=== PATIENT | female | born 1950 | race Caucasian/White ===

== ENCOUNTER 2018-07-09 16:58 | Outpatient (CLI) | payer MEDICARE, BC, SELFPAY ==
--- NOTE | 2018-07-09 15:33 | DI.RAD_ITS ---
SYMPTOM/DIAGNOSIS: LT KNEE PAIN, M25.562 LEFT KNEE: Three views. There are post surgical changes of a prior anterior cruciate ligament repair. Mild periarticular spurring is seen involving all three joint compartments. The bones are intact and normally mineralized. The soft tissues are unremarkable. IMPRESSION: 1. Mild osteoarthritis of the left knee. 2. Status post ACL repair.
== END 2018-07-09 17:18 ==
PROVIDERS: PCP Family Medicine; Visit Provider Specialist/Technologist Athletic Trainer
DX: M25.562 Pain in left knee (principal); M17.12 Unilateral primary osteoarthritis, left knee; Z98.890 Other specified postprocedural states
CPT/HCPCS: 73562

== ENCOUNTER → 2018-09-06 11:08 | Outpatient (BNVA) | payer MEDICARE, BC, SELFPAY | PROVIDERS: PCP Family Medicine; Referring Provider Family Medicine; Visit Provider Orthopaedic Surgery | DX: M25.562 Pain in left knee (principal) | CPT/HCPCS: 99211; 99213 ==

== ENCOUNTER 2018-09-10 00:56 | Outpatient (CLI) | payer MEDICARE, BC, SELFPAY ==
--- NOTE | 2018-09-10 15:34 | DI.MRI_ITS ---
SYMPTOM/DIAGNOSIS: MEDIAL JOINT LINE PAIN/ACL HOLLY 20 YRS AGO. RB MENISCUS TEAR MRI LEFT KNEE: 09/10 MR examination of the knee was performed according to the usual protocol. Note is made of fixation screws in the femur and tibia consistent with previous ACL reconstruction. There is significant artifact associated with these metallic devices. The ACL reconstruction appears intact. Posterior cruciate appears intact. There appear to be significant degenerative articular cartilage changes of medial and lateral tibiofemoral joints. There are probable medial and lateral meniscal tears. There is a May's cyst measuring up to about 6 cm in greatest diameter. CONCLUSION: Limited study. Grossly intact reconstructed ACL with probable lateral and medial meniscal tear.
== END 2018-09-10 01:16 ==
PROVIDERS: PCP Family Medicine; Visit Provider Orthopaedic Surgery
DX: M25.562 Pain in left knee (principal); M71.22 Synovial cyst of popliteal space [Baker], left knee; S83.282A Other tear of lateral meniscus, current injury, left knee, initial encounter; S83.242A Other tear of medial meniscus, current injury, left knee, initial encounter
CPT/HCPCS: 73721

== ENCOUNTER → 2018-09-25 08:34 | Outpatient (BNVA) | payer MEDICARE, BC, SELFPAY | PROVIDERS: PCP Family Medicine; Referring Provider Family Medicine; Visit Provider Orthopaedic Surgery | DX: S83.207A Unspecified tear of unspecified meniscus, current injury, left knee, initial encounter (principal); X50.1XXA Overexertion from prolonged static or awkward postures, initial encounter; M71.22 Synovial cyst of popliteal space [Baker], left knee | CPT/HCPCS: 99211; 99213 ==

== ENCOUNTER → 2018-11-19 09:52 | Outpatient (BNVA) | payer MEDICARE, BC, SELFPAY | PROVIDERS: PCP Family Medicine; Referring Provider Family Medicine; Visit Provider Physical Therapy Assistant | DX: Z01.818 Encounter for other preprocedural examination (principal); M25.562 Pain in left knee ==

== ENCOUNTER 2018-11-21 09:57 | Outpatient (CLI) | payer MEDICARE, BC, SELFPAY | END 2018-11-21 10:17 | PROVIDERS: PCP Family Medicine; Visit Provider Orthopaedic Surgery | DX: M25.562 Pain in left knee (principal); S83.207A Unspecified tear of unspecified meniscus, current injury, left knee, initial encounter; Z01.818 Encounter for other preprocedural examination ==

== ENCOUNTER 2018-11-28 06:09 | Day surgery (SDC) | payer MEDICARE, BC, SELFPAY ==
[2018-11-28] VITALS (7 sets, daily range): BP systolic 135–148; BP diastolic 70–85; PULSE 61–84; RESP 12–18; TEMP 36.4–36.8; O2SAT 96–100
[2018-11-28] MEDS: Lactated Ringers 1,000 ML 80 ML IV (06:45)
[2018-11-28] MEDS: Bupivacaine 0.5% Pres-Free 30 ML VIAL (08:30)
--- NOTE | 2018-11-28 09:08 | W.PM.DSUDISC ---
Discharge Plan Disposition Patient Disposition: HOME Condition: Improving Discharge Details Attending Provider: Kvng Hinkle Primary Care Provider: Alexsandra Ulloa V Home Meds and New Rx's Prescriptions: New hydrocodone-acetaminophen 5-325 mg Tablet 1 - 2 tab PO 4-6XD PRN (Reason: Pain) Qty: 18 RF: 0 No Action levothyroxine 25 mcg capsule 25 mcg PO DAILY RF: 0 ranitidine HCl 150 mg capsule 150 mg PO DAILY PRNRF: 0 Discharge Instructions Additional Instructions: KEEP YOUR LEFT LEG ELEVATED ABOVE HEART LEVEL MUCH POSSIBLE FOR THE NEXT 48-72 HOURS. YOU MAY WALK ON YOUR KNEE TO EAT OR TO GO TO THE BATHROOM, BUT FOR THE NEXT 48 HOURS TRY TO MAXIMIZE ELEVATION. USE YOUR CRYOCUFF TO HELP MINIMIZE PAIN AND SWELLING. YOU MAY PLACE YOUR FULL WEIGHT UPON YOUR KNEE TO EAT OR TO TO GO THE BATHROOM BUT TRY TO LIMIT ACTIVITY FOR THE NEXT 2-3 DAYS. YOU MAY LOOSEN YOUR CLARISSA BANDAGES AND/OR THE CRYOCUFF IF THEY FEEL TOO TIGHT. EXPECT A SMALL AMOUNT OF BLOODY DRAINAGE ON THE UNDERLYING GAUZE BANDAGES. ON 11/30/18, YOU MAY REMOVE ALL OF YOUR BANDAGES AND GET YOUR STITCHES WET IN THE SHOWER WITH SOAP AND WATER. GENTLY PAT THE STITCHES DRY AND COVER THEM WITH BANDAIDS OR GAUZE. RE-APPLY A SINGLE 6 INCH CLARISSA WRAP AND GRADUALLY BEGIN USING YOUR KNEE,. CONTINUE TO USE THE CRYOCUFF FOR PAIN AND SWELLING. MAKE SURE YOU REMOVE THE SINGLE 6 INCH CLARISSA BANDAGE EACH NIGHT SO THAT IT DOESN'T CAUSE SWELLING IN THE LOWER LEG OR ANKLE. TAKE TYLENOL FOR MILDER PAIN. IF YOUR STOMACH CAN HANDLE ALEVE, TAKE IT WITH THE TYLENOL FOR MORE SERIOUS DISCOMFORT. TYLENOL AND ALEVE ARE METABOLIZED DIFFERENTLY AND ARE NOT CROSS TOXIC. TAKE NORCO (HYDROCODONE 5/325MG) 1-2 EVERY 4-6 HOURS FOR MORE SERIOUS PAIN. NEW STATE [facility] REGULATIONS LIMIT THE AMOUNT OF NORCO THAT CAN BE PRESCRIBED TO [address] TABLETS. FOLLOW-UP WITH DR. HINKLE IN 10-12 DAYS FOR SUTURE REMOVAL AND REVIEW OF ARTHROSCOPIC PHOTOS. Activity:: Elevate Remove Dressings/Wound Care:: 48 hours Shower/Bathe:: 48 hours Diet:: As Tolerated Discharge Orders Discharge Orders: Discharge Order (Routine); Ordered 11/28/18 Ordered By: Kvng Hinkle
[2018-11-28] MEDS: HYDROcodone 5/Acetaminophen 325 TAB PO (10:43)
--- NOTE | 2018-11-28 16:16 | ROE_ITS ---
DATE OF PROCEDURE: November 28, 2018 PREOPERATIVE DIAGNOSIS: Left knee pain with swelling and tear of medial and lateral menisci. POSTOPERATIVE DIAGNOSIS: Left knee pain with swelling and tear of medial and lateral menisci, with a more prominent medial men iscal tear compared to lateral meniscal tear. PROCEDURE: Arthroscopy left knee; partial medial and lateral meniscectomies; limited chondroplasty o f medial femoral condyle and patella. SURGEON: Kvng Prado M.D. BRASS ROLLER: Nurse. ANESTHESIA: General via LMA by Steve Barber, TASH PREP: ChloraPrep. INDICATIONS: This patient presented to my office with chronic pain and swelling in her right knee. This was aggravated by activity. She is greater than 20 years status post ACL reconstruction. Plain radiographs showed minimal degenerative changes of the knee. An MRI showed evidence of medial and l ateral meniscal damage. There was some artifact from the bony fixation for the ACL but no evidence o f a disruption of the ACL graft. There were some mild degenerative changes noted on the medial and l ateral femoral condyles. I recommended an arthroscopy to improve the patient's quality of life, unde rstanding that there could be areas of osteoarthritis in her knee that would be missed by both the MR I and the plain radiographs. I met her the Day Surgery holding area and discussed this with the layne ent and her . I then marked her left knee. OPERATIVE PROCEDURE: She was taken to the Operating Suite and underwent successful induction without problems using LMA. A time-out was instituted verifying the planned procedure, the patient's allerg y to adhesive tape and an intolerance to NSAIDs. A pneumatic tourniquet was applied to the left proximal thigh but was no utilized during the case. T he thigh itself was placed in an research instrumentation technician holding device. After prepping the entire left low er extremity from toes to the groin and applying sterile drapes, the arthroscope was placed through a n anterolateral portal. Inflow was provided through the scope. Egress and pressure monitoring bang ls were placed superolaterally. Inspection of the medial compartment showed both vertical and horizo ntal cleavage tears in the posteromedial aspect. Associated with this was some articular cartilage d amaged in the mesial aspect of the medial femoral condyle. This was not down to subchondral bone and was in a relatively small area about the size of a nickel. The ACL graft was intact and functioning well. The lateral compartment showed some fraying of the inner surface of the lateral meniscus and a horizontal tear anterolaterally, but the majority of the lateral meniscus looked to be intact. Bot h the medial and lateral menisci were carefully probed to confirm the pathology. 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 This was subsequently treated with a limited chondroplasty using a 90-degree ArthroCare wand. Beginning with the medial compartment, a partial medial meniscectomy was performed using basket force ps followed by the ArthroCare wand at a 90-degree angle. A stable medial meniscus was then left behi nd. The lateral meniscus was also treated with the ArthroCare wand and the anterolateral tear was ca refully resected to good meniscal tissue. A limited chondroplasty was then performed with the 50- an d 90-degree ArthroCare wands of the femoral condyle and the patella. The knee was then irrigated with several thousand cc's of saline. Portals were removed and closed wi th sutures of #4-0 Ethilon in horizontal mattress fashion. The knee was injected with Marcaine 0.5% plain to provide for postoperative analgesia. The wounds were dressed with Xeroform gauze, 4x4s, and an ABD pad, followed by two 6-inch Maxim wraps and a Cryo/Cuff. The patient was taken to the outpatie nt Recovery Room in satisfactory condition, tolerating the procedure well.
--- NOTE | 2018-11-29 08:48 | PDOC.DSDIS_ITS ---
Discharge Plan Disposition Patient Disposition: HOME Condition: Improving Discharge Details Attending Provider: Kvng Hinkle Primary Care Provider: Alexsandra Ulloa V Home Meds and New Rx's Prescriptions: New hydrocodone-acetaminophen 5-325 mg Tablet 1 - 2 tab PO 4-6XD PRN (Reason: Pain) Qty: 18 RF: 0 No Action levothyroxine 25 mcg capsule 25 mcg PO DAILY RF: 0 ranitidine HCl 150 mg capsule 150 mg PO DAILY PRNRF: 0 Discharge Instructions Additional Instructions: KEEP YOUR LEFT LEG ELEVATED ABOVE HEART LEVEL MUCH POSSIBLE FOR THE NEXT 48-72 HOURS. YOU MAY WALK ON YOUR KNEE TO EAT OR TO GO TO THE BATHROOM, BUT FOR THE NEXT 48 HOURS TRY TO MAXIMIZE ELEVATION. USE YOUR CRYOCUFF TO HELP MINIMIZE PAIN AND SWELLING. YOU MAY PLACE YOUR FULL WEIGHT UPON YOUR KNEE TO EAT OR TO TO GO THE BATHROOM BUT TRY TO LIMIT ACTIVITY FOR THE NEXT 2-3 DAYS. YOU MAY LOOSEN YOUR CLARISSA BANDAGES AND/OR THE CRYOCUFF IF THEY FEEL TOO TIGHT. EXPECT A SMALL AMOUNT OF BLOODY DRAINAGE ON THE UNDERLYING GAUZE BANDAGES. ON 11/30/18, YOU MAY REMOVE ALL OF YOUR BANDAGES AND GET YOUR STITCHES WET IN THE SHOWER WITH SOAP AND WATER. GENTLY PAT THE STITCHES DRY AND COVER THEM WITH BANDAIDS OR GAUZE. RE-APPLY A SINGLE 6 INCH CLARISSA WRAP AND GRADUALLY BEGIN USING YOUR KNEE,. CONTINUE TO USE THE CRYOCUFF FOR PAIN AND SWELLING. MAKE SURE YOU REMOVE THE SINGLE 6 INCH CLARISSA BANDAGE EACH NIGHT SO THAT IT DOESN'T CAUSE SWELLING IN THE LOWER LEG OR ANKLE. TAKE TYLENOL FOR MILDER PAIN. IF YOUR STOMACH CAN HANDLE ALEVE, TAKE IT WITH THE TYLENOL FOR MORE SERIOUS DISCOMFORT. TYLENOL AND ALEVE ARE METABOLIZED DIFFERENTLY AND ARE NOT CROSS TOXIC. TAKE NORCO (HYDROCODONE 5/325MG) 1-2 EVERY 4-6 HOURS FOR MORE SERIOUS PAIN. [facility] REGULATIONS LIMIT THE AMOUNT OF NORCO THAT CAN BE PRESCRIBED TO 18 TABLETS. FOLLOW-UP WITH DR. HINKLE IN 10-12 DAYS FOR SUTURE REMOVAL AND REVIEW OF ARTHROSCOPIC PHOTOS. Stand Alone Forms: DSU Post op Instructions, Scopolamine Skin Patch, Sabino Cornell (DSU) Activity:: Elevate Remove Dressings/Wound Care:: 48 hours Shower/Bathe:: 48 hours Diet:: As Tolerated Discharge Orders Discharge Orders: Discharge Order (Routine); Ordered 11/28/18 Ordered By: Kvng Hinkle Discharge Data Discharge Date/Time-TO BE ENTERED AT DEPARTURE: 11/28/18 11:53
== END 2018-11-28 11:53 | disposition home or self-care (01) ==
PROVIDERS: PCP Family Medicine; Visit Provider Orthopaedic Surgery
PROC: (CPT 29870; principal; 2018-11-28 07:30)
DX: M25.562 Pain in left knee (principal); M25.462 Effusion, left knee; M23.232 Derangement of other medial meniscus due to old tear or injury, left knee; M23.262 Derangement of other lateral meniscus due to old tear or injury, left knee
CPT/HCPCS: 29880; E0114; J1100; J1200; J1885; J2250; J2405; J3010

== ENCOUNTER → 2018-12-11 08:29 | Outpatient (BNVA) | payer MEDICARE, BC, SELFPAY | PROVIDERS: PCP Family Medicine; Referring Provider Family Medicine; Visit Provider Orthopaedic Surgery | DX: Z47.89 Encounter for other orthopedic aftercare (principal); M23.232 Derangement of other medial meniscus due to old tear or injury, left knee; M23.262 Derangement of other lateral meniscus due to old tear or injury, left knee ==

== ENCOUNTER → 2018-12-31 09:31 | Outpatient (BNVA) | payer MEDICARE, BC, SELFPAY | PROVIDERS: PCP Family Medicine; Referring Provider Family Medicine; Visit Provider Orthopaedic Surgery | DX: M17.12 Unilateral primary osteoarthritis, left knee (principal) | CPT/HCPCS: 20610; 99211; 99212; J7325 ==

== ENCOUNTER → 2019-02-14 09:09 | Outpatient (BNVA) | payer MEDICARE, BC, SELFPAY | PROVIDERS: PCP Family Medicine; Referring Provider Family Medicine; Visit Provider Orthopaedic Surgery | DX: M17.12 Unilateral primary osteoarthritis, left knee (principal); Z47.89 Encounter for other orthopedic aftercare ==

== ENCOUNTER 2019-04-04 15:30 | Outpatient (REF) | payer MEDICARE, BC, SELFPAY ==
[2019-04-04 21:50] LABS: Glucose 100 mg/dL (70-100); TSH (W/Ref FT4) 0.01 uIU/mL (0.358-3.74)
[2019-04-04 22:33] LABS: FREE T4 1.19 ng/dL (0.76-1.46)
== END 2019-04-04 15:50 ==
LOC: NCHCN 15:30
PROVIDERS: PCP Family Medicine; Visit Provider Family Medicine
DX: E03.9 Hypothyroidism, unspecified; R79.89 Other specified abnormal findings of blood chemistry
CPT/HCPCS: 82947; 84439; 84443

== ENCOUNTER → 2019-07-25 08:29 | Outpatient (BNVA) | payer MEDICARE, BC, SELFPAY | PROVIDERS: PCP Family Medicine; Referring Provider Family Medicine; Visit Provider Student in an Organized Health Care Education/Training Program | DX: M17.12 Unilateral primary osteoarthritis, left knee (principal) | CPT/HCPCS: 20610; 99214; J7325 ==

== ENCOUNTER 2019-10-09 11:19 | Outpatient (REF) | payer MEDICARE, BC, SELFPAY | END 2019-10-09 11:39 | LOC: NCHCN 11:19 | PROVIDERS: PCP Family Medicine; Visit Provider Nurse Practitioner Family | DX: N39.0 Urinary tract infection, site not specified (principal) | CPT/HCPCS: 87086 ==

== ENCOUNTER 2019-10-15 09:15 | Outpatient (CLI) | payer MEDICARE, BC, SELFPAY ==
[2019-10-15 09:34] LABS: Bilirubin Negative (Negative); Blood Negative (Negative); Clarity Clear (Clear); Glucose Negative (Negative); Ketones Negative (Negative); Leukocyte Esterase Negative (Negative); Nitrite Negative (Negative); Urobilinogen 0.2 EU/dL (Up TO 0.2)
== END 2019-10-15 09:35 ==
PROVIDERS: PCP Family Medicine; Visit Provider Family Medicine
DX: N39.0 Urinary tract infection, site not specified (principal)
CPT/HCPCS: 81003

== ENCOUNTER 2020-06-24 12:27 | Outpatient (REF) | payer MEDICARE, BC, SELFPAY ==
[2020-06-24 23:16] LABS: TSH < 0.01 uIU/mL (0.36-3.74)
== END 2020-06-24 12:47 ==
LOC: NCHCN 12:27
PROVIDERS: PCP Family Medicine; Visit Provider Family Medicine
DX: E03.9 Hypothyroidism, unspecified (principal)
CPT/HCPCS: 84439; 84443

== ENCOUNTER 2021-04-30 08:54 | Outpatient (REF) | payer MEDICARE, BC, SELFPAY ==
[2021-04-30 20:40] LABS: TSH (W/Ref FT4) < 0.01 uIU/mL (0.36-3.74)
[2021-04-30 20:58] LABS: FREE T4 1.27 ng/dL (0.76-1.46)
== END 2021-04-30 08:55 | disposition home or self-care (01) ==
LOC: NCHCN 08:54
PROVIDERS: PCP Family Medicine; Visit Provider Family Medicine
DX: Z00.00 Encounter for general adult medical examination without abnormal findings (principal)
CPT/HCPCS: 83036; 84439; 84443

== ENCOUNTER 2021-08-18 15:06 | Outpatient (REF) | payer MEDICARE, BC, SELFPAY | END 2021-08-18 15:07 | disposition home or self-care (01) | LOC: NCHCN 15:06 | PROVIDERS: PCP Family Medicine; Visit Provider Nurse Practitioner Family | DX: R30.0 Dysuria (principal) | CPT/HCPCS: 87086 ==

== ENCOUNTER 2021-12-24 13:46 | Outpatient (REF) | payer MEDICARE, BC, SELFPAY ==
[2021-12-24 20:37] LABS: Calculated LDL 108 mg/dL (<100); Cholesterol 184 mg/dL (<200); HDL Cholesterol 61 mg/dL (40-60); Triglyceride 79 mg/dL (<150)
[2021-12-24 20:58] LABS: FREE T4 1.29 ng/dL (0.76-1.46)
== END 2021-12-24 13:47 | disposition home or self-care (01) ==
LOC: NCHCN 13:46
PROVIDERS: PCP Family Medicine; Visit Provider Family Medicine
DX: R07.9 Chest pain, unspecified (principal); E03.9 Hypothyroidism, unspecified
CPT/HCPCS: 80061; 84439

== ENCOUNTER 2022-01-19 09:00 | Outpatient (RCR) | payer MEDICARE, BC, SELFPAY | END 2022-01-20 23:59 | disposition home or self-care (01) | LOC: CR 09:00 | PROVIDERS: PCP Family Medicine; Visit Provider Family Medicine | DX: Z51.89 Encounter for other specified aftercare (principal); I25.2 Old myocardial infarction; Z95.5 Presence of coronary angioplasty implant and graft | CPT/HCPCS: S9472 ==

== ENCOUNTER → 2022-02-10 01:35 | Outpatient (CLI) | payer MEDICARE, BC, SELFPAY ==
--- NOTE | 2022-02-10 | DI.US_ITS ---
Exam(s) US THYROID EXAM: US THYROID CLINICAL HISTORY: THYROID NODULE E04.1. TECHNIQUE: Ultrasound thyroid performed using standard protocol. COMPARISON: US THYROID ULTRASOUND from 01/19/2011 US ABDOMEN ULTRASOUND (P) from 11/15/2012 FINDINGS: There are total 3 mixed solid-cystic nodules, 2 in the left lobe 1 in right lobe. RIGHT THYROID LOBE: Measures 3 cm AP x 0.5 cm wide x 5.6 cm craniocaudal. The nodule in right thyroid lobe is the dominant nodule and occupies a large part mid-inferior aspect right lobe, this nodule measuring 3.3 x 0.1x 2.9 cm Composition: Mixed solid cystic-1 point Echogenicity: Relatively hypoechoic-2 points Shape: Wider than taller-0 points Margin: Lobulated-2 points Echogenic Foci: Contains macro calcifications 1 point Total Points for this nodule: 6 ACR Ti-Rads Category: TR4 Therefore this nodule should undergo ultrasound examination as it measures greater than 1.5 cm. ISTHMUS: Normal thickness. There are no nodules in the isthmus. LEFT THYROID LOBE: Measures 2 cm AP x 1.5 wide x 4.8 cm craniocaudal There are 2 nodules in left lobe. Nodule #1 located approximately midpole level Size: Measures 1.9 x 1.0 x 1.4 cm Composition: Mixed grjoy-woudui-2 points Echogenicity: Mildly hypoechoic-1 points Shape: Wider than taller in the transverse plane-0 points Margin: Lobulated-2 points Echogenic Foci: None-0 points Total points for this nodule: 4 ACR Ti-Rads Category: 4. This nodule does not require biopsy. Nodule #2 located towards the lower pole Size: Measures 1.5 by 1.4 x 1.2 cm Composition: Mixed solid cystic-1 point Echogenicity: Mildly hyperechoic-1 point Shape: Taller than wider-3 points Margin: Smooth-0 points Echogenic Foci: None-0 point Total Points for this nodule: 5 ACR Ti-Rads Category: 4. This nodule does not require biopsy LYMPH NODES: There is no significant adenopathy. IMPRESSION: 1. Total of 3 nodules as described individually above, 1 in the right lobe and 2 in the left lobe. 2. The dominant nodule in the right lobe requires ultrasound-guided FNA given that it is TiRads 4 and greater than 1.5 cm size. 3. There is no significant lymphadenopathy. DATA REPOSITORY:
== END ==
PROVIDERS: PCP Family Medicine; Visit Provider Physician Assistant Medical
DX: E04.2 Nontoxic multinodular goiter (principal)
CPT/HCPCS: 76536

== ENCOUNTER 2022-02-11 09:11 | Outpatient (REF) | payer MEDICARE, BC, SELFPAY ==
[2022-02-11 15:28] LABS: FREE T4 1.27 ng/dL (0.76-1.46); TSH < 0.01 uIU/mL (0.36-3.74)
[2022-02-11 21:41] LABS: T3, Total 160 ng/dL (97-169)
== END 2022-02-11 09:12 | disposition home or self-care (01) ==
LOC: NCHCN 09:11
PROVIDERS: PCP Family Medicine; Visit Provider Physician Assistant Medical
DX: E04.1 Nontoxic single thyroid nodule (principal)
CPT/HCPCS: 84439; 84443; 84480

== ENCOUNTER 2022-02-18 09:00 | Outpatient (RCR) | payer MEDICARE, BC, SELFPAY | END 2022-02-19 23:59 | disposition home or self-care (01) | LOC: CR 09:00 | PROVIDERS: PCP Family Medicine; Visit Provider Internal Medicine Cardiovascular Disease | DX: Z51.89 Encounter for other specified aftercare (principal); I25.2 Old myocardial infarction | CPT/HCPCS: S9472 ==

== ENCOUNTER 2022-03-07 09:00 | Outpatient (RCR) | payer MEDICARE, BC, SELFPAY | END 2022-03-22 23:59 | disposition home or self-care (01) | LOC: CR 09:00 | PROVIDERS: PCP Family Medicine; Visit Provider Internal Medicine Cardiovascular Disease | DX: Z51.89 Encounter for other specified aftercare (principal); I25.2 Old myocardial infarction; Z95.5 Presence of coronary angioplasty implant and graft | CPT/HCPCS: S9472 ==

== ENCOUNTER 2022-04-20 08:00 | Outpatient (RCR) | payer MEDICARE, BC, SELFPAY | END 2022-04-21 23:59 | disposition home or self-care (01) | LOC: CR 08:00 | PROVIDERS: PCP Family Medicine; Visit Provider Internal Medicine Cardiovascular Disease | DX: Z51.89 Encounter for other specified aftercare (principal); I25.2 Old myocardial infarction; Z95.5 Presence of coronary angioplasty implant and graft | CPT/HCPCS: S9472 ==

== ENCOUNTER 2022-05-03 16:30 | Outpatient (REF) | payer MEDICARE, BC, SELFPAY ==
[2022-05-03 16:24] LABS: ALT 58 U/L (14-59); AST 38 U/L (15-37); Alkaline Phosphatase 64 U/L (46-116); Anion Gap 4.9 mmol/L (3-11); BUN 17 mg/dL (7-18); Bilirubin, Total 0.8 mg/dL (0.2-1.0); CO2 31.1 mmol/L (21.0-32.0); CREATININE 0.8 mg/dL (0.55-1.02); Calcium 9.2 mg/dL (8.5-10.1); Chloride 105 mmol/L (98-107); Glucose 116 mg/dL (74-106); Potassium 3.9 mmol/L (3.5-5.1); Sodium 141 mmol/L (136-145); TSH (W/Ref FT4) 0.01 uIU/mL (0.36-3.74); Total Protein 6.9 g/dL (6.4-8.2); Uric Acid 4.4 mg/dL (2.6-6.0)
[2022-05-03 16:42] LABS: Calculated LDL 58 mg/dL (<100); Cholesterol 123 mg/dL (<200); HDL Cholesterol 60 mg/dL (40-60); Triglyceride 28 mg/dL (<150)
[2022-05-03 16:43] LABS: Hemoglobin A1C 5.9 % (<5.7)
[2022-05-03 16:59] LABS: FREE T4 1.13 ng/dL (0.76-1.46)
[2022-05-06 12:06] LABS: Creatine Kinase 111 U/L (26-192)
== END 2022-05-03 16:31 | disposition home or self-care (01) ==
LOC: NCHCN 16:30
PROVIDERS: PCP Family Medicine; Visit Provider Family Medicine
DX: R73.03 Prediabetes (principal); M10.9 Gout, unspecified; E03.9 Hypothyroidism, unspecified; I25.2 Old myocardial infarction
CPT/HCPCS: 80053; 80061; 82550; 83036; 84439; 84443; 84550

== ENCOUNTER 2022-05-06 09:00 | Outpatient (RCR) | payer MEDICARE, BC, SELFPAY | END 2022-05-22 23:59 | disposition home or self-care (01) | LOC: CR 09:00 | PROVIDERS: PCP Family Medicine; Visit Provider Internal Medicine Cardiovascular Disease | DX: I25.2 Old myocardial infarction (principal); Z95.5 Presence of coronary angioplasty implant and graft; Z51.89 Encounter for other specified aftercare | CPT/HCPCS: S9472 ==

== ENCOUNTER 2024-09-12 21:16 | Outpatient (REF) | payer MEDICARE, BC, SELFPAY ==
[2024-09-12 21:27] LABS: Anion Gap 7.5 mmol/L (3-11); BUN 18 mg/dL (7-18); CO2 30.5 mmol/L (21.0-32.0); CREATININE 0.9 mg/dL (0.55-1.02); Calcium 9.5 mg/dL (8.5-10.1); Chloride 108 mmol/L (98-107); Estimated GFR 67.92 (mL/min/1.73m2); Glucose 117 mg/dL (74-106); Potassium 4.4 mmol/L (3.5-5.1); Sodium 146 mmol/L (136-145)
[2024-09-12 21:32] LABS: Hemoglobin A1C 6.1 % (<5.7)
== END 2024-09-12 21:17 | disposition home or self-care (01) ==
LOC: NCHCN 21:16
PROVIDERS: PCP Family Medicine; Visit Provider Family Medicine
DX: R73.03 Prediabetes (principal)
CPT/HCPCS: 80048; 83036

== ENCOUNTER 2024-12-23 15:42 | Outpatient (CLI) | payer MEDICARE, BC, SELFPAY ==
--- NOTE | 2024-12-23 14:00 | DI.RAD_ITS ---
Exam(s) XR KNEE LT 4V AP,LAT,MARLYS,PAT EXAM: XR KNEE LT 4V AP,LAT,MARLYS,PAT CLINICAL HISTORY: L knee pain. TECHNIQUE: 2D digital imaging was performed. Three views. COMPARISON: CR XR knee LT 3V AP,lat,marlys from 07/09/2018 FINDINGS: BONES: No acute fracture is present. No bony destructive lesion is seen. Hardware in distal femur and proximal tibia related to ACL repair. Patellar enthesophytes. JOINTS: The knee is normally aligned. The joint spaces are maintained. Periarticular spurring throu ghout. No joint effusion is seen. SOFT TISSUE: Normal. IMPRESSION: Stable postsurgical and degenerative changes. DATA REPOSITORY: RADIATION DOSE DELIVERED:
== END 2024-12-23 15:43 | disposition home or self-care (01) ==
LOC: DIORS 15:42
PROVIDERS: PCP Family Medicine; Referring Provider Family Medicine; Visit Provider Student in an Organized Health Care Education/Training Program
DX: M17.32 Unilateral post-traumatic osteoarthritis, left knee; L72.0 Epidermal cyst
CPT/HCPCS: 20610; 99203; 73564; J7325

== ENCOUNTER 2025-04-28 15:24 | Outpatient (CLI) | payer MEDICARE, BC, SELFPAY ==
--- NOTE | 2025-04-28 13:45 | DI.RAD_ITS ---
Exam(s) XR KNEE RT 4V AP,LAT,MARLYS,PAT EXAM: XR KNEE RT 4V AP,LAT,MARLYS,PAT CLINICAL HISTORY: right knee pain. TECHNIQUE: 2D digital imaging was performed. Three views. COMPARISON: CR XR KNEE LT 4V AP,LAT,MARLYS,PAT from 12/23/2024 FINDINGS: BONES: No acute fracture is present. No bony destructive lesion is seen. Small enthesophyte at quadriceps insertion on patella. JOINTS: The joint spaces are maintained. Minimal periarticular spurring. The knee is normally aligned. No joint effusion is seen. SOFT TISSUE: Normal. IMPRESSION: Minimal degenerative changes. DATA REPOSITORY: RADIATION DOSE DELIVERED:
== END 2025-04-28 15:25 | disposition home or self-care (01) ==
LOC: DIORS 15:25
PROVIDERS: PCP Family Medicine; Referring Provider Family Medicine; Visit Provider Physician Assistant
DX: M23.91 Unspecified internal derangement of right knee (principal); M25.561 Pain in right knee; L72.0 Epidermal cyst
CPT/HCPCS: 99213; 73564

== ENCOUNTER 2025-07-04 12:23 | Outpatient (REF) | payer MEDICARE, BC, SELFPAY ==
[2025-07-04 15:52] LABS: HCT 39.2 % (36.0-46.0); HGB 13.3 g/dL (11.2-15.7)
[2025-07-04 16:21] LABS: ALT 28 U/L (14-59); AST 26 U/L (15-37); Albumin 4.4 g/dL (3.4-5.0); Alkaline Phosphatase 73 U/L (46-116); Anion Gap 6.4 mmol/L (3-11); BUN 20 mg/dL (7-18); Bilirubin, Total 0.9 mg/dL (0.2-1.0); CO2 31.6 mmol/L (21.0-32.0); Calcium 9.5 mg/dL (8.5-10.1); Chloride 103 mmol/L (98-107); Estimated GFR 77.75 (mL/min/1.73m2); Glucose 124 mg/dL (74-106); Magnesium 2.1 mg/dL (1.8-2.4); Potassium 4.2 mmol/L (3.5-5.1); Sodium 141 mmol/L (136-145); TSH 4.50 uIU/mL (0.36-3.74); Total Protein 7.4 g/dL (6.4-8.2)
[2025-07-04 17:10] LABS: Vitamin D 25 Total 41 ng/mL (30-100)
[2025-07-04 17:12] LABS: Hemoglobin A1C 6.0 % (<5.7)
== END 2025-07-04 12:24 | disposition home or self-care (01) ==
LOC: NCHCN 12:23
PROVIDERS: PCP Family Medicine; Visit Provider Family Medicine
DX: R73.03 Prediabetes (principal); E55.9 Vitamin D deficiency, unspecified; I25.10 Atherosclerotic heart disease of native coronary artery without angina pectoris
CPT/HCPCS: 80053; 82306; 83036; 83735; 84439; 84443; 85014; 85018

== ENCOUNTER → 2025-07-24 08:57 | Outpatient (BNVA) | payer MEDICARE, BC, SELFPAY | PROVIDERS: PCP Family Medicine; Referring Provider Family Medicine; Visit Provider Physician Assistant | DX: M23.91 Unspecified internal derangement of right knee (principal); M17.32 Unilateral post-traumatic osteoarthritis, left knee | CPT/HCPCS: 99213 ==

== ENCOUNTER 2025-08-22 12:35 | Outpatient (REF) | payer MEDICARE, BC, SELFPAY ==
[2025-08-22 16:14] LABS: Cholesterol 157 mg/dL (<200); HDL Cholesterol 68 mg/dL (>or=50)
== END 2025-08-22 12:36 | disposition home or self-care (01) ==
LOC: NCHCN 12:35
PROVIDERS: PCP Family Medicine; Visit Provider Family Medicine
DX: I25.10 Atherosclerotic heart disease of native coronary artery without angina pectoris (principal)
CPT/HCPCS: 80061

== ENCOUNTER 2025-08-25 19:15 | Outpatient (REF) | payer MEDICARE, BC, SELFPAY | END 2025-08-25 19:16 | disposition home or self-care (01) | LOC: NCHCN 19:15 | PROVIDERS: PCP Family Medicine; Visit Provider Family Medicine | DX: R14.0 Abdominal distension (gaseous) (principal) | CPT/HCPCS: 87015; 87269; 87272 ==